=== PATIENT | male | born 1995 | race Caucasian/White ===

== ENCOUNTER 2016-04-17 16:01 | Emergency (ER) | payer OTHER ==
[~2016-04-17] VITALS: Ht 172.7 cm; Wt 68.5 kg
[~2016-04-17 16:01] MED LIST: ALBU18HF IH; AUG875 PO; IBUP-1542 PO
[2016-04-17 16:15] VITALS: Ht 172.7 cm; Wt 68.5 kg
[2016-04-17] MEDS ORDERED: HYDROGEN PEROXIDE 118 ML TOP ONE (18:00)
[2016-04-17] MEDS ORDERED: CARB15DR48 LEFT EAR (18:21)
[2016-04-17] MEDS ORDERED: IBUP-1542 PO (18:22)
--- NOTE | 2016-04-17 18:30 | ERD ---
ER Documentation Chief Complaint Date/Time DATE: 04/17/16 TIME: 18:26 Chief Complaint LEFT EAR PAIN X 2 WEEKS, CANT HEAR FROM THE LEFT EAR HPI Patient is a 20-year-old male with past medical history of asthma who presents to the emergency department with left ear pain 2 weeks. Patient states that he is unable to hear out of his left ear. He states that his hearing has been getting worse. Patient states his current pain level is a 5 out of 10. Patient reports using Q-tips frequently. Patient denies any fever, chills, nausea, vomiting, chest pain, shortness breath, cough, rhinorrhea, throat pain, abdominal pain. No recent travel. No sick contacts. ROS All systems reviewed and are negative except as per history of present illness. Medications Home Meds Active Scripts Ibuprofen* (Motrin*) 600 Mg Tab, 600 MG PO Q6, #30 TAB Prov:LESLIE GARCIA PA-C 04/17/16 Carbamide Peroxide* (Debrox*) 6.5% - 15 Ml Drops, 10 DROP LEFT EAR BID, #1 BOTTLE Prov:LESLIE GARCIA PA-C 04/17/16 Ibuprofen* (Motrin*) 600 Mg Tab, 600 MG PO Q6H Y for PAIN AND OR ELEVATED TEMP, #30 TAB Prov:REGINA FUNES NP 09/26/15 Ibuprofen* (Ibuprofen*) 600 Mg Tablet, 600 MG PO Q6, #30 TAB Prov:NATE LOVE PA-C 05/25/15 Amoxicillin-Clavulanate K* (Augmentin*) 875 Mg Tab, 875 MG PO BID for 7 Days, TAB Prov:NATE LOVE PA-C 05/25/15 Reported Medications [none] Unknown Strength No Conflict Check 09/26/15 Albuterol Sulfate* (Ventolin HFA*) 18 Gm Hfa.aer.ad, 18 GM IH DAILY 11/25/11 Allergies Allergies: Coded Allergies: benzoyl peroxide (Unverified Allergy, Mild, rash, 04/17/16) PMhx/Soc History of Surgery: Yes (APPENDECTOMY ) Anesthesia Reaction: No Hx Neurological Disorder: No Hx Respiratory Disorders: Yes (EXERCISE INDUCED ASTHMA) Hx Cardiac Disorders: No Hx Psychiatric Problems: No Hx Miscellaneous Medical Probl: No Hx Alcohol Use: No Hx Substance Use: No Hx Tobacco Use: No FmHx Family History: No diabetes Physical Exam Vitals Vital Signs Date Time Temp Pulse Resp B/P Pulse Ox O2 Delivery O2 Flow Rate FiO2 04/17/16 16:15 97.8 56 20 117/60 98 Physical Exam GENERAL: Well-developed, well-nourished male. Appears in no acute distress. HEAD: Normocephalic, atraumatic. No deformities or ecchymosis. EYE: Pupils equal, round, and reactive to light. EOMs intact. No conjunctival erythema. No scleral icterus. No eye discharge. ENT: External ear without any masses or tenderness. Left auditory canal with complete cerumen impaction. Unable to visualize TM. Right TM visualized, non- erythematous, non-bulging. Nasal mucosa pink with no discharge. Oropharynx is pink without any tonsillar erythema or exudates. No uvula deviation. No kissing tonsils. NECK: Supple. No lymphadenopathy or thyromegaly. No meningismus. No JVD. No bruits. Trachea midline. LUNGS: Clear to auscultation bilaterally. No rhonchi, wheezing, rales or coarse breath sounds. HEART: Regular rate and rhythm. No murmurs, rubs or gallops. ABDOMEN: Soft, nontender, and nondistended. Positive bowel sounds in all four quadrants. No rebound tenderness, no guarding. (-) McBurney's point tenderness. No CVA tenderness. : deferred BACK: No midline tenderness. EXTREMITES: Equal pulses bilaterally. No peripheral clubbing, cyanosis or edema. No unilateral leg swelling. NEUROLOGIC: Alert and oriented to person, place and time. Moving all four extremities. 5/5 strength in all extremities. Normal speech. Steady gait. (-) Brudzinski sign- no flexion of the hips and knees noted with neck flexion. (-) Kernigs sign- patient able to extend knee to 180 degrees with hip flexion, no hamstring stiffness noted. SKIN: Normal color. Warm and dry. No rashes or lesions. Results 24 hrs Current Medications Medications (Trade) Dose Ordered Sig/Pietro Route PRN Reason Start Time Stop Time Status Last Admin Dose Admin Hydrogen Peroxide (Hydrogen Peroxide) 1 applic ONCE ONCE TOP 04/17/16 18:00 04/17/16 18:01 DC Procedures/MDM MEDICAL DECISION MAKING: This is a 20-year-old male who presents with left ear pain and decreased hearing 2 weeks. Vital signs were reviewed. Patient was afebrile. Patient was not hypoxic. Ear exam revealed cerumen impaction of left ear. Ear lavage was performed using H20/ hydrogen peroxide mix. No trauma or complications were noted. TM was visualized post-irrigation without any erythema or perforation. Patient reported hearing restored. Given these findings, the patients presentation is most consistent with cerumen impaction. I have a much lower clinical suspicion for otitis externa, acute otitis media, tympanic membrane perforation, mastoiditis, otic barotrauma, TMJ dysfunction, strep pharyngitis, sepsis. My supervising physician, Dr. Scanlon, assisted with ear lavage. No complications. PRESCRIPTIONS: Debrox ear drops, ibuprofen DISCHARGE: At this time, patient is stable for discharge and outpatient management. Patient advised to avoid using Q-tips. I have instructed the patient to follow- up with his/her primary care physician in 1-2 days. I have discussed with the patient the possibility of needing to see a specialist for further workup and diagnostic studies if the pain persists. I have instructed the patient to promptly return to the ER at any time for any new or worsening symptoms including increased pain, fever, swelling, discharge or hearing loss. The patient and/or family expressed understanding of and agreement with this plan. All questions were answered. Home care instructions were provided. Departure Diagnosis: Primary Impression: Impacted cerumen of left ear Condition: Stable Patient Instructions: Cerumen Impaction, Home Care Additional Instructions: Avoid Q tips. Call your primary care doctor TOMORROW for an appointment during the next 1-2 days.See the doctor sooner or return here if your condition worsens before your appointment time. LESLIE GARCIA PA-C Apr 17, 2016 18:30
== END 2016-04-17 18:31 | disposition home or self-care (01) ==
LOC: FTE 16:01
DX: H61.22 Impacted cerumen, left ear (principal); J45.909 Unspecified asthma, uncomplicated
CPT/HCPCS: 69209; Z7502; Z7610

== ENCOUNTER 2016-09-09 17:39 | Emergency (ER) | payer OTHER ==
[~2016-09-09] VITALS: Ht 172.7 cm; Wt 68.5 kg
[~2016-09-09 17:39] MED LIST changes: +CARB15DR48 LEFT EAR
[2016-09-09 17:41] VITALS: Ht 172.7 cm; Wt 68.5 kg
[2016-09-09] MEDS ORDERED: IBUP-1542 PO (18:09)
--- NOTE | 2016-09-09 18:13 | ERD ---
ER Documentation Chief Complaint Date/Time DATE: 09/09/16 TIME: 18:10 Chief Complaint r. toe pain HPI Patient is a 21-year-old male who presents to the emergency department with right big toe pain after "spraining his toe 3 days ago". She states he was playing soccer when his toe bent inwards. Patient reports pain with ambulating. Patient denies taking any medication. Patient states the pain is over his interphalangeal joint. Patient denies any ankle or leg pain. Patient denies any previous injuries to the affected extremity. ROS All systems reviewed and are negative except as per history of present illness. Medications Home Meds Active Scripts Ibuprofen* (Ibuprofen*) 600 Mg Tablet, 600 MG PO Q6, #20 TAB Prov:LESLIE GARCIA PA-C 09/09/16 Ibuprofen* (Motrin*) 600 Mg Tab, 600 MG PO Q6, #30 TAB Prov:LESLIE GARCIA PA-C 04/17/16 Carbamide Peroxide* (Debrox*) 6.5% - 15 Ml Drops, 10 DROP LEFT EAR BID, #1 BOTTLE Prov:LESLIE GARCIA PA-C 04/17/16 Ibuprofen* (Motrin*) 600 Mg Tab, 600 MG PO Q6H Y for PAIN AND OR ELEVATED TEMP, #30 TAB Prov:REGINA FUNES NP 09/26/15 Ibuprofen* (Ibuprofen*) 600 Mg Tablet, 600 MG PO Q6, #30 TAB Prov:NATE LOVE PA-C 05/25/15 Amoxicillin-Clavulanate K* (Augmentin*) 875 Mg Tab, 875 MG PO BID for 7 Days, TAB Prov:NATE LOVE PA-C 05/25/15 Reported Medications [none] Unknown Strength No Conflict Check 09/26/15 Albuterol Sulfate* (Ventolin HFA*) 18 Gm Hfa.aer.ad, 18 GM IH DAILY 11/25/11 Allergies Allergies: Coded Allergies: benzoyl peroxide (Unverified Allergy, Mild, rash, 04/17/16) PMhx/Soc History of Surgery: Yes (APPENDECTOMY ) Anesthesia Reaction: No Hx Neurological Disorder: No Hx Respiratory Disorders: Yes (EXERCISE INDUCED ASTHMA) Hx Cardiac Disorders: No Hx Psychiatric Problems: No Hx Miscellaneous Medical Probl: No Hx Alcohol Use: No Hx Substance Use: No Hx Tobacco Use: No FmHx Family History: No diabetes Physical Exam Vitals Vital Signs Date Time Temp Pulse Resp B/P Pulse Ox O2 Delivery O2 Flow Rate FiO2 09/09/16 17:41 97.9 76 20 118/60 98 Physical Exam GENERAL: Well-developed, well-nourished male. Appears in no acute distress. HEAD: Normocephalic, atraumatic. EYES: Pupils are equally reactive bilaterally. EOMs grossly intact. No conjunctival erythema. ENT: Moist mucous membranes. No uvula deviation. No kissing tonsils. NECK: Supple. No meningismus. Normal range of motion of the neck. LUNG: Clear to auscultation bilaterally. No rhonchi, wheezing, rales or coarse breath sounds. HEART: Regular rate and rhythm. No murmurs, rubs or gallops. EXTREMITIES: Equal pulses bilaterally. No peripheral clubbing, cyanosis or edema. No unilateral leg swelling. NEUROLOGIC: Alert and oriented. Moving all four extremities without any difficulty. Normal speech. Steady gait. SKIN: Normal color. Warm and dry. No rashes or lesions. RIGHT FOOT: No obvious deformity, erythema, ecchymosis or swelling. Skin intact. Full ROM of digits 2 through 5, ankle and knee. Tender to palpation of the ITP joint of the first toe. Non-tender to palpation of lateral foot, medial foot, ankle. Sensation intact to light touch. Neurovascularly intact. ( Able to plantarflex, dorsiflex, ferdinand foot, invert foot, raise big toe.) 2+ DP and DT pulses. Procedures/MDM ED COURSE: The patient was stable throughout ED course. I kept the patient and/or family informed of laboratory and diagnostic imaging results throughout the ED course. DIAGNOSTIC IMAGING: Read by radiologist. DIAGNOSTIC IMAGING REPORT Patient: JUNIOR ROJAS : 1995 Age: 21 Sex: M MR #: [id number] DOS: 09/09/16 1806 Ordering MD: LESLIE GARCIA PA-C Location: [facility] Room/Bed: PROCEDURE: XR Foot. CLINICAL INDICATION: Great toe pain. Soccer injury. TECHNIQUE: AP, lateral, and oblique views of the right foot are available for review. COMPARISON: None available FINDINGS: The osseous structures, articular spaces, and surrounding soft tissues are intact. No acute fracture or dislocation is seen. No radiopaque foreign body is identified. Bony mineralization is normal. IMPRESSION: 1. Unremarkable right foot x-ray series. RPTAT: QQ .Kurt Lee MD, MD Date Time Electronically viewed and signed by .Kurt Lee MD, MD on 09/09/2016 18:47 .L/ CC: LESLIE GARCIA PA-C PROCEDURES: None. MEDICATIONS GIVEN: NONE Patient was offered analgesics however he declined. MEDICAL DECISION MAKING: This is a 21-year-old male presents with right big toe pain after injuring his toe while playing soccer 3 days ago.. Vital signs were reviewed. Patient was afebrile. Xrays showed Unremarkable right foot x-ray series. Given these findings, the patients presentation is most consistent with toe sprain. I have a much lower clinical concern for tarsal bone fracture, metatarsal fracture, phalangeal fracture, stress fracture, lisfranc injury, gout, septic joint, reactive arthritis, psoriatic arthritis, DVT, compartment syndrome, plantar fasciitis, diabetic neuropathy or pes planus. At this time, unable to rule out any tendon and ligament injuries. PRESCRIPTIONS: Ibuprofen DISCHARGE: At this time, patient is stable for discharge and outpatient management. RICE therapy and ROM exercises were advised to avoid stiffness. I have instructed the patient to follow-up with his/her primary care physician in 1-2 days. I have discussed with the patient the possibility of needing to see an proposal specialist for further workup and imaging if the pain persists. I have instructed the patient to promptly return to the ER for any new or worsening symptoms including increased pain, swelling, redness, warmth or fever. The patient and/or family expressed understanding of and agreement with this plan. All questions were answered. Home care instructions were provided. Departure Diagnosis: Primary Impression: Sprain of toe, great, right Encounter type: initial encounter Qualified Code: S93.501A - Sprain of toe, great, right, initial encounter Condition: Stable Patient Instructions: Sprain Toe Additional Instructions: Call your primary care doctor TOMORROW for an appointment during the next 1-2 days.See the doctor sooner or return here if your condition worsens before your appointment time. Ice affected extremity. Unable to rule out any ligament or tendon injuries at this time. Patient advised to follow-up with an proposal specialist on an outpatient basis if pain persists. Patient may need an MRI on an outpatient basis. LESLIE GARCIA PA-C Sep 09, 2016 18:13
--- NOTE | 2016-09-09 18:48 | RADRPT ---
PROCEDURE: XR Foot. CLINICAL INDICATION: Great toe pain. Soccer injury. TECHNIQUE: AP, lateral, and oblique views of the right foot are available for review. COMPARISON: None available FINDINGS: The osseous structures, articular spaces, and surrounding soft tissues are intact. No acute fractur e or dislocation is seen. No radiopaque foreign body is identified. Bony mineralization is normal. IMPRESSION: 1. Unremarkable right foot x-ray series. RPTAT: QQ .Kurt Lee MD, MD Date Time Electronically viewed and signed by .Kurt Lee MD, on 09/09/2016 18:47 .L/
== END 2016-09-09 19:29 | disposition home or self-care (01) ==
LOC: FTE 17:39
DX: S93.501A Unspecified sprain of right great toe, initial encounter (principal); X50.1XXA Overexertion from prolonged static or awkward postures, initial encounter; Y92.9 Unspecified place or not applicable
CPT/HCPCS: 73630; Z7502

== ENCOUNTER 2017-04-26 06:06 | Emergency (ER) | END 2017-04-26 08:06 | disposition home or self-care (01) ==